=== PATIENT | female | born 1935 | race Two or more races ===

== ENCOUNTER 2021-09-12 21:21 | Emergency (ER) | payer OTHER, BC ==
[~2021-09-12] VITALS: Ht 160 cm; Wt 60.8 kg
[2021-09-12] MEDS ORDERED: METFORMIN HCL500 M3 (21:33)
[2021-09-12] MEDS ORDERED: LIPITOR20 MG (21:33)
[2021-09-12] MEDS ORDERED: TOPROL XL50 M1 (21:33)
== END 2021-09-13 12:48 | disposition home or self-care (01) ==
LOC: ER 21:21
DX: M25.562 Pain in left knee (principal); G89.11 Acute pain due to trauma